=== PATIENT | male | born 1945 | race Caucasian/White ===

== ENCOUNTER 2025-07-01 15:27 | Outpatient (AMB) | payer OTHER, SELFPAY ==
--- NOTE | 2025-07-01 15:30 | A.OFFPC_ITS ---
Vital Signs 07/01/25 15:39 07/01/25 16:12 Height 5 ft 10 in Weight 165 lb BMI 23.7 BP 102/64 Blood Pressure Location Rt brachial Position Sitting Respiration 14 Pulse 110 H 84 Pulse Source Pulse Oximeter Temp 97.2 F Temp Source Temporal Artery Scan Pulse Oximetry (%) 99 Oxygen Delivery Method Room Air Intake Visit Reasons: EST/PACEMAKER/MUSCULAR ISSUES Intake Note: Dick presents in the office today to establish care Cartography/Mapping Technician Required: No Allergies adhesive tape Allergy (Verified 07/01/25 15:36) Rips skin Tobacco use date assessed: 07/01/25 Fall risk assessment: No Falls in past year Last assessed Fall Risk: 07/01/25 HPI HPI Comments History of Present Illness Details This is a 80-year-old male with a past medical history of muscular dystrophy, coronary artery disease, 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 He is here with his , Michelle. His previous medical records are not available yet. They do not have a medication list with them today. He was last seen in [facility] by a primary care doctor who is leaving that office. Prior to this he was seen down in [place] for many years. The patient says that he has 2 concerns today. He was seen by audiology, and he was told there is excessive wax in his ear canals. This has not been flushed yet. He does not feel like his hearing is decreased, but his thinks it is. He also endorses a frequent runny nose. The discharge is clear. It is worse when he eats. His sinuses do not feel painful or congested. No sore throat or ear pain. He tried an [id number] allergy nose spray as well as Claritin and Zyrtec. They were not effective. He also tried cold medicine which worked for 2 days. Muscular dystrophy-diagnosed age 57 years old. He is wheelchair-bound. He sees Dr. Sher Pierre at the [facility] in [place], [place]. He was recently prescribed a type of skeletal muscle relaxant to help with spasms. He does not know the name of it. Cardiovascular-patient sees [facility] in [place]. He reports a history of multiple stents, third-degree heart block with pacemaker/defib rillator implanted. He has a history of CHF. They do not know his medication doses, but they say he is on Eliquis, Bumex, spironolactone, metoprolol and rosuvastatin. Denies history of hypertension. Former smoker. PVD-patient was seen by a vascular surgeon in [place]. He was reportedly told that he may need a stent in 1 of the blood vessels in his lower legs. They endorse chronic coolness and cyanosis of his feet and hands. He was told to stop using compression stockings and uses tubies. The patient is followed by Podiatry and recently had the left great toenail removed. He has a history of skin cancer, and he is followed by [facility]. He has an appointment there on Tuesday. Denies history of melanoma. Patient says he did receive influenza vaccine this year. \. ROS: Constitutional: No fevers or chills Eyes: No eye itching, redness or vision change ENT: Denies hearing loss, ear pain, see HPI, denies sore throat Respiratory: No shortness of breath, cough or sputum production. Cardiovascular: No chest pain or palpitations Gastrointestinal: No nausea or vomiting Psychiatric: No depression. Physical exam: Constitutional: Alert, in no distress. Seated in wheelchair. Eyes: Pupils are equal, round and reactive to light. Extraocular muscles intact. Ear, Nose and Throat: Canals are mostly occluded by dry, light brown cerumen. Normal nasal mucosa. No nasal discharge. sinuses nontender. No oral lesions. Neck: Supple, Full range of motion. No lymphadenopathy. No palpable thyroid masses. Respiratory: Clear to auscultation. Cardiovascular: S1 S2 regular. No murmurs. Neurologic: Normal speech. No facial droop. Extremities: There is a bandage over the distal left great toe (removed toenail recently). The bilateral fingers, toes and distal feet are cyanotic and cool. There is 3+ bilateral lower extremity edema. Psychiatric: Normal mood and affect [facility] Medical History (Updated 07/02/25 @ 09:17 by ANABELLE Garcia) CHF (congestive heart failure) Skin cancer Chronic rhinitis Bilateral impacted cerumen Third degree heart block Coronary artery disease Lower extremity edema Peripheral vascular disease Muscular dystrophy Surgical History (Updated 07/02/25 @ 09:17 by ANABELLE Garcia) Status post placement of other cardiac pacemaker Social History (Updated 07/01/25 @ 15:39 by Danni Velazquez CMA) Housing: House Alcohol intake: current Patient Tobacco Use Status: Former Tobacco user Cigarette Packs Per Day: 1.5 Cigarettes Per Day: 30 Years Smoked: 62 e-Cigarette/Vaping Use: Never Used Second Hand Smoke Exposure: Yes service: No Current occupational status: disabled Current occupational exposures/hazards: No Cognitive needs: No Hearing needs: Yes Vision needs: No Questionnaire PHQ-9 Over the last 2 weeks, how often have you been bothered by any of the following problems? 1. Little interest or pleasure in doing things: not at all 2. Feeling down, depressed, or hopeless: not at all 3. Trouble falling or staying asleep, or sleeping too much: not at all 4. Feeling tired or having little energy: not at all 5. Poor appetite or overeating: not at all 6. Feeling bad about yourself - or that you are a failure or have let yourself or your family down: not at all 7. Trouble concentrating on things, such as reading the newspaper or watching television: not at all 8. Moving or speaking so slowly that other people could have noticed. Or the opposite - being so fidgety or restless that you have been moving around a lot more than usual: not at all 9. Thoughts that you would be better off or of hurting yourself in some way: not at all Total score: 0 Depression Screening Interpretation: Negative Depression Screening Done: Yes 87915 - PHQ-9 Billing: Yes Source: Developed by Drs. Soham Francisco, Sara Ruiz, Stephane Romo and colleagues, with an educational tej from [employer]. Thrive Questionnaire Date Thrive assessed: 07/01/25 I am a: Parent/Caregiver What is your living situation today?: I have a steady place to live Within the past 12 months, did the food you bought not last and you didn't have the money to get more?: Never true Within the past 12 months, did you worry whether your food would run out before you got money to buy more?: Never true Do you have trouble paying for medicines?: No Do you have trouble getting transportation to medical appointments?: No Do you have trouble paying your heating and electricity bill?: No Do you have trouble taking care of your child, family member or friend?: No Do you have trouble with day-to-day activities such as bathing, preparing meals, shopping, managing finances, etc.?: Yes Are you currently unemployed and looking for a job?: No Are you interested in more education?: No Please select the resources that you would like help with: None Currently or been in a relationship where the following occur: No concerns reported THRIVE Score: 0 AUDIT C Alcohol Use Questionnaire (AUDIT-C) 1. How often do you have a drink containing alcohol?: 4 or more times a week 2. How many drinks containing alcohol do you have on a typical day when you are drinking?: 1 or 2 3. How often do you have six or more drinks on one occasion?: Never Total Score: 4 OLGA-7 AMB Questionnaire OLGA-7 Date OLGA - 7 assessed: 07/01/25 Feeling nervous, anxious, or on edge: 0 = Not at all Not being able to stop or control worryin = Not at all Worrying too much about different things: 0 = Not at all Trouble relaxin = Not at all Being so restless that it is hard to sit still: 0 = Not at all Becoming easily annoyed or irritable: 0 = Not at all Feeling afraid as if something awful might happen: 0 = Not at all Total OLGA-7 score (0-4 normal; 5-9 mild; 10-14 moderate; 15-21 severe): 0 Source: Developed by Drs. Soham Francisco, Sara Ruiz, Stephane Romo and colleagues, with an educational tej from [employer]. OLGA-7 Assessment Billing OLGA-7 Assessment Tool: OLGA-7 Assessment 23672 Physical exam (Primary Care) Vital Signs: Last Vital Signs Temp 97.2 F 07/01/25 15:39 Pulse 84 07/01/25 16:12 Resp 14 07/01/25 15:39 BP 102/64 07/01/25 15:39 Pulse Ox 99 07/01/25 15:39 Oxygen Delivery Method Room Air 07/01/25 15:39 BMI result Body Mass Index 23.7 Tobacco/Smoking Status: Tobacco use Status Tobacco use date assessed 07/01/25 07/01/25 15:47 Patient Tobacco Use Status Former Tobacco user 07/01/25 15:47 e-Cigarette/Vaping Use Never Used 07/01/25 15:47 PHQ-9: PHQ-9 Score PHQ-9: Total score 0 07/02/25 08:31 Depression Screening Interpretation: Negative Thrive Assessment: Date of Thrive Assessment Date Thrive assessed 07/01/25 07/01/25 15:33 Currently or been in a relationship where the following occur: No concerns reported Coding Level of Care Code New Pt Level 4 (96435) Complex visit Add On G2211 Diagnoses Muscular dystrophy G71.00 Peripheral vascular disease I73.9 Lower extremity edema R60.0 Coronary artery disease I25.10 Third degree heart block I44.2 Status post placement of other cardiac pacemaker Z95.0 Bilateral impacted cerumen H61.23 Chronic rhinitis J31.0 Skin cancer C44.90 CHF (congestive heart failure) I50.9 Additional Codes OLGA-7 Assessment Billing - OLGA-7 Assessment Tool: OLGA-7 Assessment 24400 ([id number]) PHQ-9 - 01695 - PHQ-9 Billing: Yes ([id number]) Assessment & Plan Assessment & Plan (1) Muscular dystrophy: Code(s): G71.00 - Muscular dystrophy, unspecified Category: Medical (2) Peripheral vascular disease: Code(s): I73.9 - Peripheral vascular disease, unspecified Category: Medical (3) Lower extremity edema: Code(s): R60.0 - Localized edema Category: Medical (4) Coronary artery disease: Code(s): I25.10 - Atherosclerotic heart disease of sun'aq coronary artery without angina pectoris Category: Medical (5) Third degree heart block: Code(s): I44.2 - Atrioventricular block, complete Category: Medical (6) Status post placement of other cardiac pacemaker: Code(s): Z95.0 - Presence of cardiac pacemaker Category: Surgical (7) Bilateral impacted cerumen: Code(s): H61.23 - Impacted cerumen, bilateral Category: Medical (8) Chronic rhinitis: Code(s): J31.0 - Chronic rhinitis Category: Medical (9) Skin cancer: Code(s): C44.90 - Unspecified malignant neoplasm of skin, unspecified Category: Medical (10) CHF (congestive heart failure): Code(s): I50.9 - Heart failure, unspecified Category: Medical Plan In summary this is a 80-year-old male with muscular dystrophy and a complex cardiovascular history presenting to [facility] care. Unfortunately I have not received any medical records for the patient, and there was no med list today. They will get us this information. They are going to sign a release at the front desk agent today. He will continue his current medications. He will follow up accordingly with his specialists. They would like to transfer to [facility] so I am placing a referral. Patient reports he had lab work done a month ago with Cardiology. We will try to request these results. The patient was instructed to use Debrox drops for 4 days prior to appointment to flush the ears. Rhinitis may be vasomotor in nature. He did not respond to antihistamines. Trial of ipratropium nasal spray. Schedule follow up appointment in 2 months. Medications: New ipratropium bromide administer into each nostril 2 sprays intranasal BID-TID PRN 30 mL 5RF runny nose
[2025-07-01 15:39] VITALS: BP 102/64; PULSE 110; RESP 14; TEMP 36.2; O2SAT 99; BMI 23.7
[2025-07-01 16:12] VITALS: PULSE 84
--- OUTSIDE RECORDS SUMMARY | 2025-07-01 20:04 | XMS_ITS ---
Author Name [facility] Organization Unknown Results Test Name/Text Value Interpretation Date Range Source GFRE 321.0 Normal 06/28/2024 60 - [facility] POTASSIUM SERUM 4.0 mmol/L Normal 06/28/2024 3.5 - 5.1 [facility] CHLORIDE 105.0 mmol/L Normal 06/28/2024 98 - 107 [facility] CREATININE 0.29 mg/dL Below low normal 06/28/2024 0.7 - 1.3 [facility] GLUCOSE 79.0 mg/dL Normal 06/28/2024 74 - 106 [facility] CALCIUM 9.5 mg/dL Normal 06/28/2024 8.7 - 10.4 [facility] CO2 28.0 mmol/L Normal 06/28/2024 20 - 31 [facility] H BUN 29.0 mg/dL Above high normal 06/28/2024 9 - 23 [facility] SODIUM 140.0 mmol/L Normal 06/28/2024 136 - 145 [facility] PATIENT FASTING? NO Normal 06/28/2024 [facility] MAGNESIUM 1.9 mg/dL Normal 06/28/2024 1.6 - 2.6 [facility] PROSTATE SPECIFIC ANTIGEN 2.97 ng/mL Normal 03/22/2024 0 - 6.5 [facility] LDL 61.0 Normal 03/22/2024 0 - 129 [facility] HDL 48.0 mg/dL Normal 03/22/2024 - [facility] CHOLESTEROL 129.0 mg/dL Normal 03/22/2024 - 200 [facility] MMH TRIGLYCERIDE WITH LDLD REFLEX 102.0 mg/dL Normal 03/22/2024 - 150 [facility] TSH WITH REFLEX T4 FREE 4.21 uIU/mL Normal 03/22/2024 0.35 - 4.5 [facility] A/G RATIO 1.0 g/dL Normal 03/22/2024 [facility] GLUCOSE 91.0 mg/dL Normal 03/22/2024 74 - 100 [facility] GLOBULIN 3.4 g/dL Normal 03/22/2024 2.4 - 4.2 [facility] ALKALINE PHOSPHATASE 72.0 U/L Normal 03/22/2024 50 - 136 [facility] BUN/CREAT.RATIO 87.5 Normal 03/22/2024 [facility] CREATININE 0.24 mg/dL Below low normal 03/22/2024 0.55 - 1.3 [facility] CALCIUM 8.5 mg/dL Normal 03/22/2024 8.5 - 10.1 [facility] AST (SGOT) 30.0 U/L Normal 03/22/2024 15 - [facility] POTAS[facility]UM 3.3 mmol/L Below low normal 03/22/2024 3.5 - 5.1 [facility] CO2 27.0 mmol/L Normal 03/22/2024 21 - [facility] SODI[facility] 141.0 mmol/L Normal 03/22/2024 136 - 145 [facility] PROTEIN, TOTAL 6.9 g/dL Normal 03/22/2024 6.4 - 8.[facility] BILIRUBIN,TOTAL 0.6 mg/dL Normal 03/22/2024 0.2 - 1 [facility] ALT (SGPT) 40.0 U/L Normal 03/22/2024 12 - 78 [facility] ALBUMIN 3.5 g/dL Normal 03/22/2024 3.4 - [facility] CHL[facility] 104.0 mmol/L Normal 03/22/2024 98 - 107 [facility] BUN 21.0 mg/dL Above high normal 03/22/2024 7 - 18 [facility] PATIENT FASTING? YES Normal 03/22/2024 [facility] GFRE 400.0 Normal 03/22/2024 60 - [facility] ABSOLUTE LYMPHS 1.2 K/uL Below low normal 03/22/2024 1.5 - 4.9 [facility] MCHC 33.1 g/dL Normal 03/22/2024 31 - 36 [facility] ABSOLUTE GRANULOCYTES 6.0 K/uL Normal 03/22/2024 2.2 - 7 .3 [facility] ABSOLUTE MONOS 0.7 K/uL Normal 03/22/2024 0.2 - 1.5 [facility] MONOCYTES 8.0 % Normal 03/22/2024 0 - 12 [facility] PLATELET COUNT 301.0 K/uL Normal 03/22/2024 150 - 480 [facility] HCT 40.5 % Normal 03/22/2024 40 - 52 [facility] ABSOLUTE NUCLEATED RBC 0.0 K/uL Normal 03/22/2024 0 - 0. 012 [facility] ABSOLUTE EOS 0.2 K/uL Normal 03/22/2024 0 - 0.7 [facility] LYMPHS 14.0 % Below low normal 03/22/2024 16 - 50 [facility] HGB 13.4 g/dL Below low normal 03/22/2024 13.5 - 18 [facility] BASOPHILS 1.0 % Normal 03/22/2024 0 - 2 [facility] MCV 99.0 fL Normal 03/22/2024 83 - 102 [facility] RBC 4.1 M/uL Below low normal 03/22/2024 4.3 - 6 [facility] MCH 33.0 PG Normal 03/22/2024 27 - 34 [facility] ABSOLUTE BASO 0.1 K/uL Normal 03/22/2024 0 - 0.2 [facility]H GRANULOCYTES 74.0 % Normal 03/22/2024 23 - 78 [facility] RDW 14.6 % Above high normal 03/22/2024 11.1 - 13.3 [facility] EOSINOPHILS 2.0 % Normal 03/22/2024 0 - 6 [facility] H ABSOLUTE IMMATURE GRANULOCYTES 0.1 K/uL Normal 03/22/2024 0 - 0.3 [facility] NUCLEATED RBC 0.0 % Normal 03/22/2024 0 - 0.2 [facility] MMH WBC 8.1 K/uL Normal 03/22/2024 3.7 - 10.3 [facility] IMMATURE GRANULOCYTES 1.0 % Above high normal 03/22/2024 0 - 0.45 [facility] MPV 11.0 fL Normal 03/22/2024 8 - 12 [facility] History of Medication Use Medication Directions Dispensed Refills Start Date End Date [facility] spironolactone (ALDACTONE) 25 mg tablet Take 1 tablet (25 mg total) by mouth 1 (one) time each day. 05/23/2024 active clopidogreL (PLAVIX) 75 mg tablet Take 1 tablet (75 mg total) by mouth 1 (one) time each day. 04/22/2024 active triamcinolone (KENALOG) 0.5 % cream Apply topically 2 (two) times a day. Apply thin layer 12/25/2020 active atenolol (TENORMIN) 25 MG tablet Take 12.5 mg by mouth daily. 12/13/2020 active atenoloL (TENORMIN) 25 mg tablet Take 0.5 tablets (12.5 mg total) by mouth 1 (one) time each day. 12/13/2020 active bumetanide (BUMEX) 2 mg tablet Take 1 tablet (2 mg total) by mouth 1 (one) time each day. 12/01/2020 active bumetanide (BUMEX) 2 MG tablet Take 2 mg by mouth daily. 12/01/2020 active pravastatin (PRAVACHOL) 40 MG tablet Take 40 mg by mouth daily. 11/25/2020 active potassium chloride (K-TAB) 20 MEQ CR tablet Take 20 mEq by mouth daily. 10/05/2020 active potassium chloride 20 mEq tablet extended release Take 20 mEq by mouth 1 (one) time each day. 10/05/2020 active Eliquis 5 mg tablet Take 1 tablet (5 mg total) by mouth 2 (two) times a day. 09/25/2020 active Eliquis 5 MG tablet Take 5 mg by mouth 2 (two) times a day. 09/25/2020 active clonazepam 2 mg tablet Take 1 tablet 3 times a day by oral route. 5 completed Anusol-HC 25 mg rectal suppository Insert 1 suppository twice a day by rectal route for 14 days. active atenolol 25 mg tablet Take 1 tablet every day by oral route. active azithromycin 250 mg tablet TAKE 2 TABLETS BY MOUTH TODAY, THEN TAKE 1 TABLET DAILY FOR 4 DAYS DIRECTED active bumetanide 2 mg tablet Take 1 tablet every day by oral route. active clopidogrel 75 mg tablet Take 1 tablet every day by oral route. active Eliquis 5 mg tablet Take 1 tablet twice a day by oral route. active Klonopin 1 mg tablet Take 1 tablet 3 times a day by oral route. active metoprolol succinate ER 25 mg capsule sprinkle, ext. release 24 hr Take 1 capsule every day by oral route. active metoprolol succinate ER 25 mg tablet,extended release 24 hr TAKE 1 TAB BY MOUTH DAILY, STOP ATENOLOL active potassium chloride 20 mEq oral packet Take 1 packet 4 times a day by oral route. active pravastatin 40 mg tablet Take 1 tablet every day by oral route. active rosuvastatin 20 mg tablet Take 1 tablet every day by oral route. active spironolactone 25 mg tablet Take 1 tablet every day by oral route. active aspirin 81 MG chewable tablet Chew 81 mg daily. ac tive clonazePAM (KlonoPIN) 2 mg tablet Take 1 tablet (2 mg total) by mouth at bedtime as needed. at bedtime. active pravastatin (PRAVACHOL) 10 mg tablet Take 1 tablet (10 mg total) by mouth daily. active Problems Problem Status Onset Date Problem Type Date of Resolution Source Encounter for adjustment or management of cardiac device active EncounterDiagnosisAct CT_T HSFRAN Pulmonary disease active EncounterDiagnosisAct CCT Encounters Encounter Type Encounter Reason Primary Diagnosis Location Date Ambulatory [facility] 02/15/2025 [facility] 02[facility]01/2025 [facility] 01/31/2025 Ambulatory [facility] 01[facility]23/2025 Ambulatory [facility] 12[facility]29/2024 Ambulatory [facility] 12/17/2024 Ambulatory [facility] 11/29/2024 Ambulatory [facility] 11[facility]29/2024 Ambulatory [facility] 11[facility]27/2024 [facility] 11/24/2024 [facility] 10[facility]26/2024 Ambulatory [facility] 10/19/2024 Ambulatory [facility] 10[facility]19/2024 Ambulatory [facility] 10/19/2024 Ambulatory [facility] 10[facility]19/2024 Ambulatory [facility] 10/18/2024 Ambulatory [facility] 10[facility]12/2024 Ambulatory [facility] 10/12/2024 Ambulatory Encounter for adjustment and management of other cardiac device Encounter for adjustment and management of other cardiac device [facility] 07/04/2024 Ambulatory [facility] 07/04/2024 Ambulatory CHR RESP FAIL UNS HYPOX/HYPERCAPNIA CHR RESP FAIL UNS HYPOX/HYPERCAPNIA [facility] 06/28/2024 Ambulatory [facility] 06/28/2024 Ambulatory LYMPHEDEMA NOT ELSEWHERE CLASSIFIED LYMPHEDEMA NOT ELSEWHERE CLASSIFIED [facility] 06/15/2024 Ambulatory [facility] 05/14/2024 Ambulatory [facility] 03/22/2024 Care Team Organization Name Specialty Phone Email Start Date End Da te [facility] Hilario Conklin MD Primary Care 06/07/2025 [facility] [employer] [facility] SOLIS Primary Care 03/25/2025 [facility] Hilario Conklin MD Primary Care 12/06/202406/04 [facility] [employer] [facility] JOHNNIE Primary Care 12/05/2024 [facility] 10/17/2024 [facility] 07/07/2024 [facility] 07/05/2024 [facility] Hilario Conklin MD Primary Care 05/14/2024 [facility] Hilario Conklin MD Primary Care 03/22/2024 10/21/19 [facility] Hilario Conklin MD Primary Care 03/22/2024 [place] [facility] NO PCP Primary Care 03/21/2024 [facility] 03/12/2024 04/01/2025 [facility] 03/12/2024
--- OUTSIDE RECORDS SUMMARY | 2025-07-01 20:04 | XMS_ITS | Clinical Summary ---
Author Organization [facility] Address [address] [place] [address] Phone Care Team Providers Care Precision Grinder External Name Role Phone Hilario Conklin MD Primary Care Provider [phone] Allergies No known active allergies Medications Eliquis 5 mg tablet Take 1 tablet (5 mg total) by mouth 2 (two) times a day. 09/25/2020 Active atenoloL (TENORMIN) 25 mg tablet Take 0.5 tablets (12.5 mg total) by mouth 1 (one) time each day. 12/13/2020 Active bumetanide (BUMEX) 2 mg tablet Take 1 tablet (2 mg total) by mouth 1 (one) time each day. 12/01/2020 Active clonazePAM (KlonoPIN) 2 mg tablet Take 1 tablet (2 mg total) by mouth at bedtime as needed. at bedtime. Active clopidogreL (PLAVIX) 75 mg tablet Take 1 tablet (75 mg total) by mouth 1 (one) time each day. 04/22/2024 Active potassium chloride 20 mEq tablet extended release Take 20 mEq by mouth 1 (one) time each day. 10/05/2020 Active pravastatin (PRAVACHOL) 10 mg tablet Take 1 tablet (10 mg total) by mouth daily. Active spironolactone (ALDACTONE) 25 mg tablet Take 1 tablet (25 mg total) by mouth 1 (one) time each day. 05/23/2024 Active Encounters Date Type Department Care Team Description 06/05/2025 Telephone [facility] [address] [place] [address] Hilario Conklin MD 05/31/2025 Telephone Cardiac Arrythmia - [facility] [address] [place] [id number] Rosangela Jacobo MA 05/16/2025 Telephone Cardiology - [place] [address] [place] [address] Arian iMller MD from Last 3 Months Social History Tobacco Use Types Packs/Day Years Used Date Smoking Tobacco: Former Cigarettes Smokeless Tobacco: Never Alcohol Use Standard Drinks/Week Comments Not Currently 0 (1 standard drink = 0.6 oz pur e alcohol) 1/2 glass of wine 6 days/wk Sex and Gender Information Value Date Recorded Sex Assigned at Not on file Legal Sex Male 10:28 AM EST Gender Identity Not on file Sexual Orientation Not on file Obstetrics History Last Filed Vital Signs Vital Sign Reading Time Taken Comments Blood Pressure 102/66 07/04/2024 2:29 PM EST Pulse 82 07/04/2024 2:29 PM EST Temperature - - Respiratory Rate - - Oxygen Saturation - - Inhaled Oxygen Concentration - - Weight 71.7 kg (158 lb) 07/04/2024 2:29 PM EST Height 177.8 cm (5' 10 ) 07/04/2024 2:29 PM EST Body Mass Index 22.67 07/04/2024 2:29 PM EST Plan of Treatment Health Maintenance Due Date Last Done Comments DTaP,Tdap,and Td Vaccines (1 - Tdap) 1966 Zoster Vaccines (1 of 2) 1997 Pneumococcal Vaccine: 50+ Years (2 of 2 - PCV) 05/22/2015 05/22/2014 RSV Immunization Adult Patients (1 - 1-dose 75+ series) 2022 Cholesterol Screening (Lipid Panel) 06/15/2024 Falls Risk Assessment 06/15/2024 Hepatitis C Screening 06/15/2024 Medicare Annual Wellness Visit 06/15/2024 Social Influencers of Health Screening 06/15/2024 Hypertension/CHF/CAD Annual BMP Blood Test 07/26/2024 11/20/2022, 08/12/2022, 08/12/2022 Depression Screening 08/08/2024 COVID-19 Vaccine (2 - 2024-2 6 season) 2025 05/24/2024 Influenza Vaccine (#1) 2025 , 04/26/2016 HIB Vaccines Aged Out No longer eligi ble based on patient's age to complete this topic HPV Vaccines Aged Out No longer eligi ble based on patient's age to complete this topic Hepatitis A Vaccines Aged Out No long er eligible based on patient's age to complete this topic Hepatitis B Vaccines Aged Out No long er eligible based on patient's age to complete this topic IPV Vaccines Aged Out No longer eligi ble based on patient's age to complete this topic MMR Vaccines Aged Out No longer eligi ble based on patient's age to complete this topic Meningococcal ACWY Vaccine Aged Out N o longer eligible based on patient's age to complete this topic Meningococcal B Vaccine Aged Out No l onger eligible based on patient's age to complete this topic RSV Immunization Patients Under 20 months Aged Out No longer eligible b ased on patient's age to complete this topic Varicella Vaccines Aged Out No longer eligible based on patient's age to complete this topic Medical Devices Implanted Type Area Supervisor Home [employer] Device Identifier Shelf Expiration Date Model / Serial / Lot Biot-Manu Intica Malachi 7 Hf-T [id number] Implanted:12/2022 (Quantity not on file) Cardiac [employer]GANIC [employer] WORKER-D [employer] INTICA MALACHI 7 HF-T / [id number] / Insurance [employer] MEDICARE ADVANTAGE Care Teams Precision Grinder External Relationship Specialty Start Date End Date Hilario Conklin MD [address] [place] [address] PCP - General Family Medicine 02/25/25
--- OUTSIDE RECORDS SUMMARY | 2025-07-01 20:04 | XMS_ITS | Clinical Summary ---
Author Organization [facility] Address [address] [place] [address] Care Team Providers Care Termite Control Servicer Name Role Phone Pcp, No Primary Care Provider Unavailabl e Allergies No known active allergies Medications Eliquis 5 MG tablet Take 5 mg by mouth 2 (two) times a day. 1 Active potassium chloride (K-TAB) 20 MEQ CR tablet Take 20 mEq by mouth daily. 1 Active pravastatin (PRAVACHOL) 40 MG tablet Take 40 mg by mouth daily. 1 Active atenolol (TENORMIN) 25 MG tablet Take 12.5 mg by mouth daily. 1 Active bumetanide (BUMEX) 2 MG tablet Take 2 mg by mouth daily. 1 Active aspirin 81 MG chewable tablet Chew 81 mg daily. Active triamcinolone (KENALOG) 0.5 % creamIndication s:Dermatitis Apply topically 2 (two) times a day. Apply thin layer 30 g 1 Active Active Problems No known active problems Social History Tobacco Use Types Packs/Day Years Used Date Smoking Tobacco: Never Assessed Sex and Gender Information Value Date Recorded Sex Assigned at Not on file Legal Sex Male 2:56 PM EDT Gender Identity Not on file Sexual Orientation Not on file Last Filed Vital Signs Vital Sign Reading Time Taken Comments Blood Pressure 100/70 12/25/2020 1:27 PM EDT Pulse 81 12/25/2020 1:27 PM EDT Temperature 36 C (96.8 F) 12/25/2020 1:27 PM EDT Respiratory Rate - - Oxygen Saturation 99% 12/25/2020 1:27 PM EDT Inhaled Oxygen Concentration - - Weight - - Height - - Body Mass Index - - Plan of Treatment Health Maintenance Due Date Last Done Comments Advance Care Planning 1945 Hepatitis C Virus Screening 1945 DTaP/Tdap/Td Vaccines (1 - Tdap) 1966 Pneumococcal Vaccines 50+ (1 of 1 - PCV) 1997 Zoster (Shingles) Vaccine (1 of 2) 1997 RSV Vaccine 50 years and old er and Patients (1 - 1-dose 75+ series) 2022 Influenza Vaccine 03/08/2025 COVID-19 Vaccine ( - 2023-2 5 season) 2025 Hepatitis B Vaccines Aged Out No long er eligible based on patient's age to complete this topic Insurance [facility] MEDICARE AETNA [facility] MEDICARE Care Teams Termite Control Servicer Relationship Specialty Start Date End Date Pcp, Amy PCP - General General Medicine 12/25/20
== END 2025-07-01 16:30 | disposition home or self-care (01) ==
LOC: HO.HMCFM 15:28
PROVIDERS: PCP Physician Assistant Medical; Visit Provider Physician Assistant Medical
DX: G71.00 Muscular dystrophy, unspecified (principal); I44.2 Atrioventricular block, complete; I50.9 Heart failure, unspecified; I73.9 Peripheral vascular disease, unspecified; R60.0 Localized edema; I25.10 Atherosclerotic heart disease of native coronary artery without angina pectoris; Z95.0 Presence of cardiac pacemaker; H61.23 Impacted cerumen, bilateral; J31.0 Chronic rhinitis; C44.90 Unspecified malignant neoplasm of skin, unspecified

== ENCOUNTER → 2025-07-01 15:27 | Outpatient (BNVA) | payer OTHER, SELFPAY | PROVIDERS: PCP Physician Assistant Medical; Visit Provider Physician Assistant Medical | DX: Z13.31 Encounter for screening for depression (principal); Z13.39 Encounter for screening examination for other mental health and behavioral disorders | CPT/HCPCS: 96127 ==

== ENCOUNTER 2025-07-16 11:53 | Outpatient (AMB) | payer OTHER, SELFPAY ==
--- NOTE | 2025-07-16 12:44 | AM.OFFVISNUR ---
Intake Visit Reasons: nurse visit for ear flush Allergies adhesive tape Allergy (Verified 07/01/25 15:36) Rips skin Office Procedures Cerumen Removal From which ear canal was the cerumen removed: bilateral Removal: irrigation Notes: patient tolerated procedure well [id number] Irrigation/Lavage Assessment & Plan Assessment & Plan Orders: Orders AMB Cerumen Removal Today H61.23 - Impacted cerumen, bilateral Coding CPT Codes Office Procedure - CPT: 52225-Fcv Irrigation/Lavage ([id number])
== END 2025-07-16 12:42 | disposition home or self-care (01) ==
LOC: HO.HMCFM 11:53
PROVIDERS: PCP Physician Assistant Medical; Visit Provider Physician Assistant Medical
DX: H61.23 Impacted cerumen, bilateral (principal)

== ENCOUNTER → 2025-07-16 11:53 | Outpatient (BNVA) | payer OTHER, SELFPAY | PROVIDERS: PCP Physician Assistant Medical; Visit Provider Physician Assistant Medical | DX: H61.23 Impacted cerumen, bilateral (principal) | CPT/HCPCS: 69209 ==